=== PATIENT | male | born 1975 | race Two or more races ===

== ENCOUNTER 2024-04-01 21:26 | Observation (INO) ==
[2024-04-01] MEDS: Lactated Ringers 1000 ml BAG 1,000 ML IV ONE ×3 (21:45→23:06)
[2024-04-01 21:58] LABS: ABS Basophils 0.1 10^3/uL (0.0-0.1); ABS Monocytes 1.1 10^3/uL (0.0-1.1); ABS Neutrophils 13.4 10^3/uL (1.5-7.6); ABS Nucleated RBC 0.01 10^3/ul; Eosinophil % 0.1 %; Hematocrit 39.7 % (38-53); Hemoglobin 13.3 g/dL (13.2-16.3); Lymphocyte % 11.9 %; Mean Corpuscular Hgb Conc 33.6 g/dL (31-36); Mean Corpuscular Volume 92.2 fL (80-97); Mean Platelet Volume 8.4 fL (7.5-11.2); Platelet Count 301 10^3/uL (150-450); Red Cell Distribution Width 12.8 % (12-17); White Blood Count 16.6 10^3/uL (3.6-10.2)
[2024-04-01 22:09] LABS: INR 1.12 (0.85-1.14)
[2024-04-01 22:18] LABS: Albumin 4.5 g/dL (3.2-5.2); Albumin/Globulin Ratio 1.7 (1-3); Calcium 10.3 mg/dL (8.6-10.3); Creatinine, Serum 2.17 mg/dL (0.67-1.17); Globulin 2.7 g/dL (2-4); Potassium 4.3 mmol/L (3.5-5.0); Total Bilirubin 0.9 mg/dL (0.2-1.0); Total Protein 7.2 g/dL (6.4-8.9); eGFR CKD-EPI 36.2 (>60)
[2024-04-01 22:29] LABS: Magnesium 2.2 mg/dL (1.9-2.7)
[2024-04-01 23:23] LABS: High Sensitivity Troponin 1 Hr 77 pg/mL (<20)
[2024-04-02 00:44] LABS: High Sensitivity Troponin 3 Hr 65 pg/mL (<20)
[2024-04-02 03:01] LABS: Urine Appearance Clear; Urine Bilirubin Negative (Negative); Urine Blood Negative (Negative); Urine Color Yellow; Urine Glucose Negative (Negative); Urine Ketones Negative (Negative); Urine Nitrite Negative (Negative); Urine Protein Trace (Negative); Urine Specific Gravity 1.022 (1.002-1.030); Urine Urobilinogen Negative (Negative)
[2024-04-02] MEDS ORDERED: Sulfur Hexaflouride MICROSPHR 25 MG VIAL IV PRN (03:45)
[2024-04-02 06:03] LABS: ABS Basophils 0.1 10^3/uL (0.0-0.1); ABS Eosinophils 0.1 10^3/uL (0.0-0.5); ABS Monocytes 0.9 10^3/uL (0.0-1.1); ABS Neutrophils 6.1 10^3/uL (1.5-7.6); Eosinophil % 0.7 %; Hematocrit 31.9 % (38-53); Hemoglobin 11.3 g/dL (13.2-16.3); Lymphocyte % 21.8 %; Mean Corpuscular Hemoglobin 32.4 pg (27-33); Mean Corpuscular Hgb Conc 35.5 g/dL (31-36); Mean Corpuscular Volume 91.3 fL (80-97); Mean Platelet Volume 8.3 fL (7.5-11.2); Platelet Count 239 10^3/uL (150-450); Red Cell Distribution Width 12.8 % (12-17); White Blood Count 9.1 10^3/uL (3.6-10.2)
[2024-04-02 07:07] LABS: Albumin 3.7 g/dL (3.2-5.2); Albumin/Globulin Ratio 1.9 (1-3); Calcium 8.8 mg/dL (8.6-10.3); Creatinine, Serum 0.93 mg/dL (0.67-1.17); Magnesium 1.9 mg/dL (1.9-2.7); Potassium 3.7 mmol/L (3.5-5.0); Total Bilirubin 0.8 mg/dL (0.2-1.0); Total Protein 5.7 g/dL (6.4-8.9)
[2024-04-02] MEDS: Lactated Ringers 1000 ml BAG 1,000 ML IV SCH (14:48)
[2024-04-03 06:01] LABS: ABS Basophils 0.1 10^3/uL (0.0-0.1); ABS Eosinophils 0.2 10^3/uL (0.0-0.5); ABS Lymphocytes 2.3 10^3/uL (1.0-4.8); ABS Monocytes 0.5 10^3/uL (0.0-1.1); ABS Neutrophils 3.3 10^3/uL (1.5-7.6); ABS Nucleated RBC 0.01 10^3/ul; Eosinophil % 2.7 %; Hematocrit 32.8 % (38-53); Hemoglobin 11.4 g/dL (13.2-16.3); Lymphocyte % 36.7 %; Mean Corpuscular Hgb Conc 34.8 g/dL (31-36); Mean Platelet Volume 8.5 fL (7.5-11.2); Nucleated Red Blood Cells % 0.1 %/100WBC (0.0-0.8); Platelet Count 221 10^3/uL (150-450); Red Blood Count 3.57 10^6/uL (4.06-5.63); White Blood Count 6.3 10^3/uL (3.6-10.2)
[2024-04-03 07:18] LABS: Albumin 3.7 g/dL (3.2-5.2); Albumin/Globulin Ratio 1.9 (1-3); Calcium 8.9 mg/dL (8.6-10.3); Creatinine, Serum 0.81 mg/dL (0.67-1.17); Magnesium 1.8 mg/dL (1.9-2.7); Potassium 4.3 mmol/L (3.5-5.0); Total Bilirubin 0.8 mg/dL (0.2-1.0); Total Protein 5.7 g/dL (6.4-8.9); eGFR CKD-EPI 107.4 (>60)
[2024-04-03] MEDS: Magnesium Sulf 4 GM/100 ML IV 4,000 MG/100 ML BAG IVPB ONE (10:58)
[2024-04-03 14:19] VITALS: BP 140/88
== END 2024-04-03 16:15 | disposition home or self-care (01) ==
LOC: EDHOLD 21:26 → ED 21:26 → SUATTDRO 04-02 02:21 → MED 04-02 08:50
PROVIDERS: ADMIT Internal Medicine; ATTEND Student in an Organized Health Care Education/Training Program